=== PATIENT | female | born 1985 | race Caucasian/White ===

== ENCOUNTER 2018-10-02 07:09 | Inpatient (IN) ==
[2018-10-02 07:48] LABS: Amphetamine Screen,Urine Negative ng/mL (Cutoff=1000); Barbiturate Screen,Urine Negative ng/mL (Cutoff=200)
[2018-10-02 07:49] LABS: Benzodiazepines Screen,Urine Negative ng/mL (Cutoff=300); Cannabinoid Screen,Urine Negative ng/mL (Cutoff = 50); Cocaine Screen,Urine Negative ng/mL (Cutoff= 300); Opiate Screen,Urine Negative ng/mL (Cutoff=300); Phencyclidine Screen,Urine Negative ng/mL (Cutoff=25)
[2018-10-02] MEDS ORDERED: miSOPROStol 25 MCG TABLET PO PRN ×3 (08:57→10:02)
[2018-10-02] MEDS ORDERED: Famotidine 20 MG/2 ML VIAL IVP PRN (08:57)
[2018-10-02] MEDS ORDERED: Metoclopramide 10 MG/2 ML VIAL IVP PRN (08:57)
[2018-10-02] MEDS ORDERED: *HR* Nalbuphine 10 MG/ML AMPUL IVP PRN (08:57)
[2018-10-02] MEDS ORDERED: Naloxone 0.4 MG/ML INJ IVP PRN (08:57)
[2018-10-02] MEDS ORDERED: Ringers Solution, Lactated 1,000 ML IVC SCH (09:00)
--- NOTE | 2018-10-02 09:27 | OB Labor Progress Note ---
Date of Encounter: 10/02/18 Time of Encounter: 09:23 Labor Progress Note - Subjective Subjective: Patient reports contractions that are infrequent and pain is manageable - Cervix Cervix: 2/50/-3 - Heart Tones Heart Tones: Baseline 160 Moderate variability Accelerations present No decelerations FHR Category I - [place]: Infrequent and sometimes painful - Interventions Interventions: Double moss balloon placed with 60mL per balloon - Plan Physician notified: No Plan: Continue augmentation management Recheck cervix in 4 hours Anticipate
[2018-10-02 09:58] LABS: Basophils # 0.1 K/mcL (0.0-0.2); Basophils % 0.5 %; Eosinophils # 0.1 K/mcL (0.0-0.6); Eosinophils % 1.1 %; Hematocrit 35.5 % (35.3-44.9); Hemoglobin 11.8 g/dL (11.5-15.4); Immature Granulocytes % 1.7 % (0-4); Lymphocytes % 20.1 %; Mean Corpuscular HGB Conc 33.2 g/dL (31.6-35.5); Mean Corpuscular Hemoglobin 29.5 pg (28.0-33.3); Mean Corpuscular Volume 88.8 fL (83.0-100.0); Mean Platelet Volume 10.4 fL (9.4-12.4); Monocytes # 0.8 K/mcL (0.0-1.3); Monocytes % 7.8 %; Neutrophils # 6.9 K/mcL (1.6-8.9); Platelet Count 207 K/mcL (140-400); Red Cell Distribution Width 12.7 % (11.5-14.5); Segmented Neutrophils % 68.8 %
[2018-10-02] MEDS: Ondansetron 4 MG/2 ML VIAL IVP PRN ×2 (10:04→16:20)
--- NOTE | 2018-10-02 13:29 | OB/GYN History & Physical ---
Date of Encounter: 10/02/18 Time of Encounter: 09:15 Assessment and Plan (1) 38 weeks gestation of Current visit: Yes Status: Acute (2) Intrauterine Current visit: Yes Status: Acute Admit to L&D for augmentation of labor Double moss balloon catheter 50mcg misoprostol PO x 1 Recheck cervix in 4 hours Pain management plan is epidural - may have upon request Anticipate Dr. Che is OB fashion show director and is available as needed (3) SROM (spontaneous rupture of membranes) Current visit: Yes Status: Acute Fern and nitrazine positive (4) Type A blood, Rh positive Current visit: Yes Status: Acute History of Present Illness Chief complaint: SROM HPI: Ms. Serna is a 33 year old female she had [id number] at 38 weeks 3 days gestation with an estimated date of of 10/13/18 dated by LMP. She presents today with complaints of a gush of fluid around 0330 this morning. She reports her membranes were stripped at her office visit on Sunday and she has been bran ever since then. She endorses good movement and denies vaginal bleeding. Her has been uncomplicated. She has been followed by Drs. Esquivel and Kristi throughout her . records are available electronically and have been reviewed. Labs: A+ GBS- HIV- HepB- RPR NR GC/CL - Rubella immune Varicella immune Past Med Surg Social Fam HX - Past Medical History Medical history: no medical history Additional medical history: "leaky heart valve" Psychiatric history: no psych history - Past Surgical History Surgical History: no surgical history - Social History Smoking Status: Former smoker Smokeless Tobacco Status: No Alcohol use: none Drug use: none - Family History Mother Hx Family Cardiac Disorders: Yes (hypertension) Obstetrical History - Pregnancies : 2 Para: 1 Term: 1 : 0 Ab's: 0 Livin Medications and Allergies Acetaminophen [Tylenol] 325 mg PO 08/21/18 [History] Prenatl Vit6/Iron/FA/B12/Ca/D3 [Mteryti Combo Pack] 1 each PO 08/21/18 [History] RX: Acetaminophen [Tylenol] 500 mg PO Q6HR PRN #20 tablet 08/21/18 [Rx] Allergy/AdvReac Type Severity Reaction Status Date / Time Sulfa (Sulfonamide Allergy Mild Hives Verified 10/02/18 09:47 Antibiotics) Review of System OB All systems PM: reviewed and no additional remarkable complaints except as stated Exam - Constitutional Constitutional: well developed, well nourished, no acute distress, average body habitus - HEENT HEENT: PERRL, Normocephaly, Mucus Membranes Moist - Neck Neck exam: full ROM - Lungs Respiratory exam: CTAB - Cardiovascular Cardiovascular exam: RRR, +S1, +S2 - Breasts Breast: bilateral: normal - Abdomen Abdomen: Present: bowel sounds normal, gravid - Extremities Extremities exam: normal capillary refill, normal inspection, radial pulses palpable and symmetrical - Vulva Vulva: bilateral: normal - Vagina Vagina: Present: normal moisture - Cervix Dilation: 2 Effacement: 50 Station: -3 - Uterus Uterus exam: Present: normal size, normal contour - Adnexa Adnexa: bilateral: normal - Anus/Rectum Anus/Rectum: Present: normal perianal skin Results Result Diagrams: 10/02/18 09:30 All other labs normal. - VTE Reasons for not Prescribing Prophylaxis: Treatment not Indicated - Low risk for VTE
--- NOTE | 2018-10-02 13:55 | Anesthesia Evaluation PreOp ---
Date of Encounter: 10/02/18 Time of Encounter: 13:53 - Past History Planned Operation: eduardo Cardiac History: Denies any Significant Hx Pulmonary History: Denies Any Significant HX PHOTO OFFSET PRINTER History: Denies Any Significant HX Other Medical History: GERD Anesthesia History: No Prior Anesthetic Complications, Past Anesthesia (eduardo, c- scope) : Yes Test: Positive Alcohol Use: none Drug use: none Medications and Allergies Acetaminophen [Tylenol] 325 mg PO 08/21/18 [History] Acetaminophen [Tylenol] 500 mg PO Q6HR PRN #20 tablet 08/21/18 [Rx] Prenatl Vit6/Iron/FA/B12/Ca/D3 [Mteryti Combo Pack] 1 each PO 08/21/18 [History] Allergy/AdvReac Type Severity Reaction Status Date / Time Sulfa (Sulfonamide Allergy Mild Hives Verified 10/02/18 09:47 Antibiotics) - Meds/Allergy Pre-op Review Medications Reviewed: Yes Allergies Reviewed: Yes Beta Blockers on Current Med List: No Anesthesia Results - Labs 10/02/18 09:30 Anesthesia Exam [id number] 16 fht 136 Height: 5'10' Weight: 116 NPO (# of Hours): 3 Pain Scale: 2 Pain Scale Used: Numeric (1 - 10) - HEENT Pupil (Motor): Pupils equal Mallampati: II Teeth: Normal Oral Opening: Greater than 3 - PHOTO OFFSET PRINTER LOC: Oriented PHOTO OFFSET PRINTER Motor: Normal RUE, Normal LUE, Normal RLE, Normal LLE, Normal Face PHOTO OFFSET PRINTER Sensory: Normal: RUE, LUE, RLE, LLE, Face - Cardiac Rhythm: Regular Murmur: None - Pulmonary Breath Sounds: bilateral Clear Respiratory Effort: Symmetrical Anesthesia Assess/Plan ASA Score: 2 Anesthetic Plan: Epidural (RISKS DISCUSSED, QUESTIONS ANSWERED, CONSENTED) Monitoring Plan: Standard Monitors Recovery Plan: Other
[2018-10-02] MEDS ORDERED: *HR* FentaNYL (PF) 100 MCG/2 ML VIAL EP ONE (13:56)
[2018-10-02] MEDS ORDERED: *HR* Ropivacaine/PF 0.2% 20 ML VIAL EP ONE (13:56)
[2018-10-02] MEDS ORDERED: *HR* FentaNYL (PF) 100 MCG/2 ML VIAL ONE (13:58)
[2018-10-02] MEDS ORDERED: *HR* Ropivacaine/PF 0.2% 20 ML VIAL ONE (13:59)
[2018-10-02] MEDS ORDERED: Lidocaine -MPF 2% 5 ML VIAL ONE (13:59)
[2018-10-02] MEDS ORDERED: Epidural Premix (fent/bupiv) 110 ML EP SCH (14:00)
--- NOTE | 2018-10-02 14:13 | OB Labor Progress Note ---
Date of Encounter: 10/02/18 Time of Encounter: 14:11 Labor Progress Note - Subjective Subjective: Patient tolerating contractions and states they are not as painful. - Cervix Cervix: 5/70/-2 - Heart Tones Heart Tones: Baseline 160 Moderate variability Accelerations present 15x15 No decelerations FHR Category I - [place]: Contractions every 2-4 minutes and palpate mild to moderate - Interventions Interventions: SVE Cook catheter removed - Plan Physician notified: Yes Plan: Start pitocin per protocol and increase to adequate contractions May have epidural upon request Anticipate Dr. Che updated
[2018-10-02] MEDS ORDERED: Oxytocin 20 units/ LR 1000 mL 20 UNIT/1,000 ML BAG IVC SCH ×2 (14:15→22:38)
--- NOTE | 2018-10-02 14:58 | Anesthesia Procedures ---
Addendum entered and electronically signed by Nico Ruiz CRNA 10/02/18 21:55: Infant Delivery Date: 10/02/18 Delivery Time: 20:52 Original Note: Date of Encounter: 10/02/18 Time of Encounter: 14:56 Procedures: Anesthesia - Epidural/Spinal Patient ID/Chart reviewed: Yes Patient examined: Yes OB Eval: Gestational age: 38 OB Eval: : 2 OB Eval: Hx Para: 1 OB Eval: Dilated at (cm): 5 OB Eval: Contractions: Non-stressed pattern Consent Obtained: Yes Supplemental Oxygen: None/Room Air Site Prep: Aseptic Technique, Sterile prep and drape, 0.5% Chlorhexidine/Alcohol Patient position: upright Local Anesthetic: Lidocaine 1% Amount of Local Anesthetic used: 3 Touhy Needle Gauge: 18 Touhy Needle Depth (cm): 8 Catheter Depth at Skin (cm): 15 Test Dose (1.5% Lido + Epi): Volume given (mls): 3 Test Dose Result: Positive Loading Dose: Fentanyl (mcg): 100 Loading Dose: Other: rop 0.2% 10cc Loading Dose Administered: Thru Touhy Needle Infusion Med: 0.125% Bupivacaine w/ 2 mcg/ml Fentanyl Infusion Rate (mls/hr): 15 (pcea 5cc q30") Catheter Secured in Place: Tegaderm Interspace Used: L2-L3 Loss of Resistance (TERRELL): Yes Blood: No CSF: No Paresthesia: No Procedure: aseptic, zenon well, VSS,effective Vitals + FHT's: 131/91 104 16 fht 155
--- NOTE | 2018-10-02 18:21 | OB Labor Progress Note ---
Date of Encounter: 10/02/18 Time of Encounter: 18:19 Labor Progress Note - Subjective Subjective: Patient comfortable with epidural - Cervix Cervix: 6/70/-2 - Heart Tones Heart Tones: Continued category I tracing - [place]: IUPC with adequate contractions - Interventions Interventions: SVE IUPC placed - Plan Physician notified: No Plan: Continue augmentation management Frequent position changes Anticipate
--- NOTE | 2018-10-02 21:15 | OB/GYN Procedure Note ---
Delivery - Delivery Date: 10/02/18 Provider: Terra Berry Intrapartum events: none Delivery induction: moss, misoprostol Delivery augmentation: pitocin Delivery monitor: external FHT, external uterine, internal uterine Anesthesia: epidural Quantitated Blood Loss: 250 - (s) A Delivery Date: 10/02/18 Delivery Time: 20:52 Presentation: vertex Position: OA Route of delivery: Gender: Male Viability: Viable at 1 minute: 8 at 5 mins: 9 Shoulder Dystocia: not encountered Specimens collected: cord blood Placenta: complete extraction Cord: nuchal cord, nuchal reduced - Repair Laceration Description: Perineal - 1st Degree - Complications Delivery complications: none Delivery comments: C/C/+1, patient uncomfortable. With adequate maternal effort, delivered with 3 contraction(S). Delivered DOA position, rest to ALVARO. Loose nuchal x1, reduced and delivered . Vigorous male, crying. 60sec cord delay. Cord clamped and cut. No gases. Segment created. Cord blood obtained. First degree laceration repaired using 4-0 vicryl in the usual fashion. Small bilateral periurethral tears appreciated. Hemostasis, counts correct. EBL: 250mL APGARS: 8/9 Terra Berry MD - Disposition Mom disposition: stable in LDR [place] disposition: stable in LDR
[2018-10-02] MEDS ORDERED: Measles/Mumps/Rubella Vacc 0.5 ML VIAL SQ PRN (22:38)
[2018-10-02] MEDS: Ibuprofen 600 MG TABLET PO PRN (23:36)
[2018-10-03] MEDS: Ibuprofen 600 MG TABLET PO PRN ×3 (06:29→20:40)
[2018-10-03 07:07] LABS: Basophils % 0.3 %; Eosinophils # 0.1 K/mcL (0.0-0.6); Eosinophils % 1.1 %; Hematocrit 31.7 % (35.3-44.9); Hemoglobin 10.4 g/dL (11.5-15.4); Immature Granulocytes % 1.1 % (0-4); Lymphocytes # 1.7 K/mcL (0.6-4.6); Lymphocytes % 16.9 %; Mean Corpuscular HGB Conc 32.8 g/dL (31.6-35.5); Mean Corpuscular Hemoglobin 29.3 pg (28.0-33.3); Mean Corpuscular Volume 89.3 fL (83.0-100.0); Mean Platelet Volume 10.5 fL (9.4-12.4); Monocytes # 0.8 K/mcL (0.0-1.3); Monocytes % 7.7 %; Neutrophils # 7.2 K/mcL (1.6-8.9); Platelet Count 173 K/mcL (140-400); Red Blood Count 3.55 M/mcL (3.82-4.97); Red Cell Distribution Width 12.6 % (11.5-14.5); Segmented Neutrophils % 72.9 %
[2018-10-03] MEDS: Prenatal Vit/FA 1 EACH TABLET PO SCH (08:35)
[2018-10-03] MEDS: Acetaminophen 325 MG TABLET PO PRN ×2 (11:15→18:01)
[2018-10-03] MEDS ORDERED: Famotidine 20 MG TABLET PO ONE (21:00)
[2018-10-04] MEDS: Ibuprofen 600 MG TABLET PO PRN (10:02)
[2018-10-04] MEDS: Prenatal Vit/FA 1 EACH TABLET PO SCH (10:03)
--- NOTE | 2018-10-04 10:07 | OB/GYN Progress Note ---
Date of Encounter: 10/03/18 Time of Encounter: 12:30 - Assessment and Plan (1) 38 weeks gestation of Current Visit: Yes Status: Acute 33yo female PPD#1 from , 1. management - tolerating regular diet and passing flatus - ambulating independently, voiding spontaneously - minimal vaginal bleeding appreciated, minimal pain (IBUprofen/tylenol prn) - denies si/sx of infection including fever/chills, normal VS - breast feeding, consultation ordered - will discuss contraception at 4wk PPV Dispo: OK to DC patient on PPD#2, circumcision for baby boy Satish scheduled for tomorrow on PPD#2. OK for patient to be DC to home on 10/04/2018. MD JHONY Subjective - Subjective Principal diagnosis: PPD#1 Interval history: Patient doing well s/p , PPD#1, baby boy SATISH. Tolerating regular diet, ambulating, passing flatus, feeling as though she could potentially have a bowel movement. Ambulating well, baby also doing well. Circumcision tomorrow PPD#2. No pain medicatoin. Breast feeding. Patient reports: appetite normal, voiding normally, pain well controlled, ambulating normally : doing well Objective - Latest Vital Signs Latest vital signs: Vital Signs Temp Pulse Pulse Resp BP Pulse Ox 10/03/18 19:45 98.6 F 83 16 131/89 99 10/03/18 15:45 97.8 F 92 16 110/77 98 10/03/18 15:41 92 16 Intake and Output 10/03/18 10/04/18 10/04/18 23:59 07:59 15:59 Intake Total 600 / 600 Output Total 1999 900 / 900 Balance -2000 / -2000 -300 / -300 Intake: Oral 600 / 600 Output: Urine 1999 900 / 900 Other: Weight 112.854 kg Patient Weight 10/04/18 23:59 Weight 112.854 kg - Exam Extremities: Present: normal Abdomen: Present: normal appearance Uterus: Present: normal, firm Uterus Position: 2 Fingers Below Umbilicus
[2018-10-04 11:32] VITALS: BP 92/54
--- NOTE | 2018-10-04 13:00 | Discharge Summary ---
Date of Encounter: 10/04/18 Time of Encounter: 12:58 - Discharge Diagnosis (1) Vaginal delivery Priority: Primary Status: Acute Comments: Pt meeting all milestones. She desires discharge home today. (2) Breast feeding status of mother Priority: Secondary Status: Acute Comments: Pt has a pump at home. well established. - Discharge Medications Prescriptions: New Acetaminophen [Tylenol] 650 mg PO Q6HR PRN tablet PRN Reason: Mild Pain Ibuprofen [Motrin] 600 mg PO Q6HR PRN #30 tablet PRN Reason: Cramping Calcium Carbonate [Tums] 1,000 mg PO Q4H PRN tab.chew PRN Reason: Heartburn Docusate [Colace] 100 mg PO BID #30 capsule Continue Prenatl Vit6/Iron/FA/B12/Ca/D3 [Mteryti Combo Pack] 1 each PO Discontinued Acetaminophen [Tylenol] 325 mg PO Acetaminophen [Tylenol] 500 mg PO Q6HR PRN #20 tablet PRN Reason: Pain Home Medications: Prenatl Vit6/Iron/FA/B12/Ca/D3 [Mteryti Combo Pack] 1 each PO 08/21/18 [History] Acetaminophen [Tylenol] 650 mg PO Q6HR PRN tablet 10/04/18 [Rx] Calcium Carbonate [Tums] 1,000 mg PO Q4H PRN tab.chew 10/04/18 [Rx] Docusate [Colace] 100 mg PO BID #30 capsule 10/04/18 [Rx] Ibuprofen [Motrin] 600 mg PO Q6HR PRN #30 tablet 10/04/18 [Rx] Allergies/Adverse Reactions: Allergy/AdvReac Type Severity Reaction Status Date / Time Sulfa (Sulfonamide Allergy Mild Hives Verified 10/02/18 09:47 Antibiotics) Data Procedures and tests throughout hospitalization: Laboratory Tests 10/02/18 10/02/18 10/03/18 07:35 09:30 06:39 WBC 10.0 9.8 RBC 4.00 3.55 L Hgb 11.8 10.4 L Hct 35.5 31.7 L MCV 88.8 89.3 MCH 29.5 29.3 MCHC 33.2 32.8 RDW 12.7 12.6 Plt Count 207 173 MPV 10.4 10.5 Immature Gran % 1.7 1.1 Seg Neutrophils % 68.8 72.9 Lymphocytes % 20.1 16.9 Monocytes % 7.8 7.7 Eosinophils % 1.1 1.1 Basophils % 0.5 0.3 Neutrophils # 6.9 7.2 Lymphocytes # 2.0 1.7 Monocytes # 0.8 0.8 Eosinophils # 0.1 0.1 Basophils # 0.1 0.0 Urine Opiates Screen Negative Ur Barbiturates Screen Negative Ur Phencyclidine Scrn Negative Ur Amphetamines Screen Negative U Benzodiazepines Scrn Negative Urine Cocaine Screen Negative U Marijuana (THC) Screen Negative Ur Drug Screen Interp See Below Date of admission: 10/02/18 07:09 Primary care physician: PCP NONE Consults: 10/02/18 22:38 Consult to Cath Lab [CONS] Routine Comment: Vaginal delivery, consult needed Discharging clinician: Isabel Khan Anticipated date of discharge: 10/04/18 - Patient Status Disposition: Home, Self-Care Condition: Good Functional capacity at discharge: independent ambulation Overall status at discharge: patient is progressing back to baseline - Discharge Instructions Follow Up With: NONE,PCP [Primary Care Provider] - Ki Galeana MD [Partnered Physician] - - Diet and Activity Activity: increase activity as tolerated Diet: regular diet Hospital Course Reason for admission: induction of labor Delivery: Episiotomy: none Laceration: 1st degree Other procedures: none complications: none Discharge diagnosis: IUP at term delivered baby: male Hospital course: - Delivery Date: 10/02/18 Provider: Terra Berry Intrapartum events: none Delivery induction: moss, misoprostol Delivery augmentation: pitocin Delivery monitor: external FHT, external uterine, internal uterine Anesthesia: epidural Quantitated Blood Loss: 250 - Infant (s) A Infant Delivery Date: 10/02/18 Delivery Time: 20:52 Presentation: vertex Position: OA Route of delivery: Gender: Male Viability: Viable at 1 minute: 8 at 5 mins: 9 Shoulder Dystocia: not encountered Specimens collected: cord blood Placenta: complete extraction Cord: nuchal cord, nuchal reduced - Repair Laceration Description: Perineal - 1st Degree - Complications Delivery complications: none - Disposition Mom disposition: home PPD2 disposition: home with mother, Time Attestation: Total time spent providing and/or coordinating discharge services: Time Spent: Less than 30 minutes Exam - Constitutional Vitals: Temp Pulse Resp BP Pulse Ox 97.6 F 85 80 92/54 100 10/04/18 10:11 10/04/18 10:11 10/04/18 11:32 10/04/18 11:32 10/04/18 10:11 General appearance IM: A&O X 3 - Respiratory Respiratory exam: Present: CTAB - Cardiovascular Cardiovascular exam IM: Present: RRR - GI/Abdominal GI/Abdominal exam IM: soft - Uterine Tone: Firm Uterus Position: 1 Finger Below Umbilicus - Extremities Exam Extremities exam IM: Present: pedal edema (1+ bilaterally) - Neurological Exam Neurological exam: normal gait, oriented X3 - Psychiatric Additional comments: reports good mood
== END 2018-10-04 15:00 | disposition home or self-care (01) | DRG 560 ==
LOC: 1NENULAB → OBSVTOIN 07:09 → 1NENUOBS 23:31
PROVIDERS: ADMIT Advanced Practice Midwife; ATTEND Advanced Practice Midwife

== ENCOUNTER 2018-10-09 00:55 | Inpatient (IN) ==
[2018-10-09 01:35] LABS: Basophils % 0.5 %; Eosinophils # 0.3 K/mcL (0.0-0.6); Eosinophils % 3.4 %; Hematocrit 34.9 % (35.3-44.9); Hemoglobin 11.3 g/dL (11.5-15.4); Immature Granulocytes % 1.3 % (0-4); Lymphocytes # 2.5 K/mcL (0.6-4.6); Lymphocytes % 32.1 %; Mean Corpuscular HGB Conc 32.4 g/dL (31.6-35.5); Mean Corpuscular Hemoglobin 29.3 pg (28.0-33.3); Mean Corpuscular Volume 90.4 fL (83.0-100.0); Mean Platelet Volume 9.3 fL (9.4-12.4); Monocytes # 0.8 K/mcL (0.0-1.3); Monocytes % 10.1 %; Neutrophils # 4.1 K/mcL (1.6-8.9); Platelet Count 259 K/mcL (140-400); Red Blood Count 3.86 M/mcL (3.82-4.97); Red Cell Distribution Width 12.8 % (11.5-14.5); Segmented Neutrophils % 52.6 %
--- NOTE | 2018-10-09 01:42 | Emergency Department Note ---
Disposition Clinical Impression: UTI (urinary tract infection) Qualifiers: Urinary tract infection type: acute cystitis Hematuria presence: with hematuria Qualified Code(s): N30.01 - Acute cystitis with hematuria Headache Qualifiers: Headache type: unspecified Headache chronicity pattern: chronic headache Intractability: not intractable Qualified Code(s): R51 - Headache Hypertension Qualifiers: Hypertension type: unspecified Qualified Code(s): I10 - Essential (primary) hypertension Disposition: Admitted As Inpatient Condition: Good Time of Disposition: 04:37 General Adult HPI - General Chief complaint: ED Dizziness Stated complaint: HTN/1wk /dizzy/cp Time Seen by Provider: 10/09/18 01:13 Source: patient Limitations: no limitations Nursing Notes Reviewed: Yes Vital Signs Reviewed: Yes - History of Present Illness HPI Narrative: Female patient who is 1 week from a normal vaginal delivery presenting to the emergency department complaining of headaches swelling to her lower extremities and hypertension. Did not have a history of hypertension prior to this. No history of hypertension or preeclampsia. Patient does report some heaviness in the left side of her chest. She denies any blurred vision but does report a waxing and waning headache that is more significant today than normal. She denies any fevers. She denies any vaginal discharge out of the ordinary. Pain Scale: 7 - Related Data Home Medications Medication Instructions Recorded Confirmed RX: Prenatl Vit6/Iron/FA/B12/Ca/D3 1 each PO 08/21/18 [Mteryti Combo Pack] Previous Rx's Medication Instructions Recorded RX: Acetaminophen [Tylenol] 650 mg PO Q6HR PRN tablet 10/04/18 RX: Calcium Carbonate [Tums] 1,000 mg PO Q4H PRN tab.chew 10/04/18 RX: Docusate [Colace] 100 mg PO BID #30 capsule 10/04/18 RX: Ibuprofen [Motrin] 600 mg PO Q6HR PRN #30 tablet 10/04/18 Cephalexin [Keflex] 500 mg PO BID 5 Days capsule 10/09/18 Allergies Allergy/AdvReac Type Severity Reaction Status Date / Time Sulfa (Sulfonamide Allergy Mild Hives Verified 10/09/18 01:22 Antibiotics) All systems ED: reviewed and negative except as stated. Review of Systems: As Per HPI Constitutional: Denies: fever Eyes: Denies: vision change Cardiovascular: Reports: chest pain. Denies: palpitations, syncope Respiratory: Reports: dyspnea. Denies: cough, sputum production Gastrointestinal: Denies: abdominal pain, nausea, vomiting, diarrhea, hematemesis, melena, hematochezia Genitourinary: Denies: urgency, dysuria, frequency, hematuria Musculoskeletal: Reports: back pain, neck pain Integumentary: Denies: rash Neurological: Reports: headache Past Medical History - Past Medical History Attestation: Yes The following information was validated with the patient. Source: patient Medical history: Reports: non-contributory Surgical history: Reports: no surgical history Psychiatric history: Reports: no psych history SIZE MAKER history: Reports: no SIZE MAKER history - Social History Smoking Status: Former smoker Smokeless Tobacco Status: No Alcohol use: Reports: none Drug use: Reports: none Physical Exam - General Limitations: no limitations General appearance: alert, in no apparent distress - Head Head exam: atraumatic, normocephalic, normal inspection - Eye Eye exam: Present: normal appearance, PERRL, EOMI - ENT ENT exam: normal exam, normal oropharynx, mucous membranes moist - Neck Neck exam: Present: normal inspection, full ROM, trachea midline - Chest Chest inspection: Present: normal inspection, symmetric chest wall rise - Respiratory Respiratory exam: Present: normal lung sounds bilaterally. Absent: respiratory distress, accessory muscle use - Cardiovascular Cardiovascular exam: Present: regular rate, normal rhythm, normal heart sounds - Abdominal Exam Abdominal exam: Present: soft, Non-Tender. Absent: tenderness, distention, guarding, rebound, rigidity, organomegaly, Cochran's sign, Rovsing's sign, tender ness at McBurney's Point - Extremities Exam Extremities exam: Present: normal inspection, full ROM, normal capillary refill, pedal edema (Pitting to the knees bilaterally). Absent: tenderness, calf tenderness - Back Exam Back exam: Present: normal inspection, full ROM. Absent: tenderness - Neurological Exam Neurological exam: Present: alert, oriented X3, CN II-XII intact - Psychiatric Psychiatric exam: Present: normal affect, normal mood - Skin Skin exam: Present: warm, dry, intact, normal color. Absent: rash, cyanosis, diaphoresis Course Course Narrative: Patient with a history of headache since her presenting with worsening of her headache today worsening of lower extremity edema and high blood pressure. She also reports edema to her lower extremities. She reports a mild shortness of breath as well as a heaviness on her chest. She denies any fevers or coughs. She does report a rhinorrhea that is worse when she lays down that exacerbates the feeling in her chest. She denies any increase in vaginal discharge other than normal. She denies any burning on urination. She states she has otherwise been doing okay. Lung exam patient does have pitting edema to her lower extremities. Sounds are clear heart tones are normal. Abdomen is soft nontender. She is hypertensive while here. She states her normal pressures are in the 90s systolic.. She denies any palpitations. She has never been hypertensive before. She is . Basic lab workup on patient and provide patient with Tylenol for her headache. - Reevaluation(s) Reevaluation #1: Patient's hypertension has resolved. She does still have a headache. After discussion with my attending she states that she has had her headache ever since she delivered. She did have an epidural. However her pain is not worse with movement. Not worse with walking. She is also reporting that she has had some nasal congestion and she feels like that is heavy on her chest when she lays flat so she has been sitting up. She denies any shortness of breath currently. She is resting comfortably currently. She appears well and in no acute distress. We have been consult them with our OB department here. We did get a troponin as well as the chest x-ray secondary to patient's chest pain. Also an EKG which showed no signs of acute ischemia. The patient appears well and is resting comfortably. Her hypertension did resolve while here. OB here has parameters for hypertension is 160/110. Reevaluation #2: Patient's liver enzymes mildly elevated. She continues with the headache. She is neurologically intact. No protein in her urine. We will admit patient to OB at this time for preeclampsia. We have started her on magnesium. I discussed this with the patient. - Consultations Consultation #1: I talk was sterilely the radio equipment installer. She is agreeable with the workup so far. She will be following with the patient. Time: 01:42 Consultation #2: I attest face with Ainsley the nurse practitioner. She will be talking to . Time: 03:03 Consultation #3: Ainsley called back with Dr Stevenson's recommendation of discharge home with instructions to call their office if symptoms continue. Time: :19 Additional Consultation(s): After reviewing the patient's vital signs on the monitor in the room she was not ed to be hypertensive on several different occasions. This did not appear to initially be documented and one was accidentally documented is lower than what the diastolic number actually was. Patient reports she still having headache. Patient does have a mild elevation in her liver enzymes. I discussed this case with Dr. Stevenson and he is recommending we go on and start patient on mag and admit to his service. Vital Signs Temperature 97.8 F 10/09/18 00:59 Pulse Rate 76 10/09/18 00:59 Respiratory Rate 16 10/09/18 00:59 Blood Pressure 145/101 10/09/18 00:59 O2 Sat by Pulse Oximetry 100 10/09/18 00:59 Temperature 97.8 F 10/09/18 00:59 Pulse Rate 68 10/09/18 04:42 Respiratory Rate 18 10/09/18 04:42 Blood Pressure 159/99 10/09/18 04:42 O2 Sat by Pulse Oximetry 100 10/09/18 04:42 Oxygen Delivery Oxygen Delivery Room Air Medical Decision Making - Medical Records Medical records reviewed: Yes I reviewed the patient's medical records. - Lab Data Lab results reviewed: Yes I reviewed the patient's lab results. Result diagrams: 10/09/18 01:25 10/09/18 01:25 Lab Results 10/09/18 10/09/18 10/09/18 Range/Units 01:25 01:25 01:25 WBC 7.7 (4.3-11.1) K/mcL RBC 3.86 (3.82-4.97) M/mcL Hgb 11.3 L (11.5-15.4) g/dL Hct 34.9 L (35.3-44.9) % MCV 90.4 (83.0-100.0) fL MCH 29.3 (28.0-33.3) pg MCHC 32.4 (31.6-35.5) g/dL RDW 12.8 (11.5-14.5) % Plt Count 259 (140-400) K/mcL MPV 9.3 L (9.4-12.4) fL Immature Gran % 1.3 (0-4) % Seg Neutrophils % 52.6 % Lymphocytes % 32.1 % Monocytes % 10.1 % Eosinophils % 3.4 % Basophils % 0.5 % Neutrophils # 4.1 (1.6-8.9) K/mcL Lymphocytes # 2.5 (0.6-4.6) K/mcL Monocytes # 0.8 (0.0-1.3) K/mcL Eosinophils # 0.3 (0.0-0.6) K/mcL Basophils # 0.0 (0.0-0.2) K/mcL Sodium 141 (136-145) mEq/L Potassium 3.9 (3.5-5.1) mEq/L Chloride 107 (98-107) mEq/L Carbon Dioxide 23 (23-29) mEq/L BUN 13 (6-20) mg/dL Creatinine 0.58 L (0.60-1.20) mg/dL Est GFR ( Amer) > 60 (> 60) Est GFR (Non-Af Amer) > 60 (> 60) BUN/Creatinine Ratio 22 (6-26) Glucose 91 (70-105) mg/dL Calculated Osmolality 292 (280-300) Lactic Acid 0.4 L (0.5-2.2) mmol/L Uric Acid 5.0 (2.3-7.6) mg/dL Calcium 8.3 L (8.6-10.3) mg/dL Total Bilirubin 0.3 (0.3-1.0) mg/dL AST 32 (13-39) Units/L ALT 60 H (7-52) Units/L Alkaline Phosphatase 110 H (34-104) Units/L Troponin I < 0.03 (< 0.04) ng/mL Serum Total Protein 6.0 L (6.4-8.9) g/dL Albumin 3.2 L (3.5-5.7) g/dL Globulin 2.8 (2.4-3.5) g/dL Albumin/Globulin Ratio 1.1 (1.1-2.2) Urine Color (Yellow) Urine Clarity (Clear) Urine pH (5.0-8.0) pH Units Ur Specific [place] (1.010-1.025) Urine Protein (Neg-Trace) mg/dL Urine Glucose (UA) (Normal) mg/dL Urine Ketones (Negative) mg/dL Urine Blood (Negative) Urine Nitrite (Negative) Urine Bilirubin (Negative) Urine Urobilinogen (Normal) mg/dL Ur Leukocyte Esterase (Negative) Urine Microscopic RBC (0-3) per hpf Urine Microscopic WBC (0-3) per hpf Ur Squamous Epith Cells (None-Few) per lpf Urine Bacteria (None-Few) per hpf Hyaline Casts (None-Few) per lpf Ur Culture Indicated? (NO) 10/09/18 Range/Units 02:28 WBC (4.3-11.1) K/mcL RBC (3.82-4.97) M/mcL Hgb (11.5-15.4) g/dL Hct (35.3-44.9) % MCV (83.0-100.0) fL MCH (28.0-33.3) pg MCHC (31.6-35.5) g/dL RDW (11.5-14.5) % Plt Count (140-400) K/mcL MPV (9.4-12.4) fL Immature Gran % (0-4) % Seg Neutrophils % % Lymphocytes % % Monocytes % % Eosinophils % % Basophils % % Neutrophils # (1.6-8.9) K/mcL Lymphocytes # (0.6-4.6) K/mcL Monocytes # (0.0-1.3) K/mcL Eosinophils # (0.0-0.6) K/mcL Basophils # (0.0-0.2) K/mcL Sodium (136-145) mEq/L Potassium (3.5-5.1) mEq/L Chloride (98-107) mEq/L Carbon Dioxide (23-29) mEq/L BUN (6-20) mg/dL Creatinine (0.60-1.20) mg/dL Est GFR ( Amer) (> 60) Est GFR (Non-Af Amer) (> 60) BUN/Creatinine Ratio (6-26) Glucose (70-105) mg/dL Calculated Osmolality (280-300) Lactic Acid (0.5-2.2) mmol/L Uric Acid (2.3-7.6) mg/dL Calcium (8.6-10.3) mg/dL Total Bilirubin (0.3-1.0) mg/dL AST (13-39) Units/L ALT (7-52) Units/L Alkaline Phosphatase (34-104) Units/L Troponin I (< 0.04) ng/mL Serum Total Protein (6.4-8.9) g/dL Albumin (3.5-5.7) g/dL Globulin (2.4-3.5) g/dL Albumin/Globulin Ratio (1.1-2.2) Urine Color Yellow (Yellow) Urine Clarity Clear (Clear) Urine pH 6.5 (5.0-8.0) pH Units Ur Specific [place] 1.015 (1.010-1.025) Urine Protein Negative (Neg-Trace) mg/dL Urine Glucose (UA) Normal (Normal) mg/dL Urine Ketones Negative (Negative) mg/dL Urine Blood Large H (Negative) Urine Nitrite Negative (Negative) Urine Bilirubin Negative (Negative) Urine Urobilinogen Normal (Normal) mg/dL Ur Leukocyte Esterase Moderate H (Negative) Urine Microscopic RBC 3-5 H (0-3) per hpf Urine Microscopic WBC 15-30 H (0-3) per hpf Ur Squamous Epith Cells Many H (None-Few) per lpf Urine Bacteria Moderate H (None-Few) per hpf Hyaline Casts None Seen (None-Few) per lpf Ur Culture Indicated? NO. A (NO) - Radiology Data Radiology results reviewed: Yes I reviewed the patient's radiology results. Chest X-Ray 10/09/18 03:24 IMPRESSION: No acute findings. D/ / Nereyda Garber MD / Nereyda Garber MD Interpreting Provider: Nereyda Garber MD - EKG Data EKG #1 EKG attestation: Yes I reviewed and interpreted this EKG. EKG results narrative: Normal sinus rhythm at a rate of 62. [place] interval is 164. QRS duration is 98. QT is 387. QTC is 393. No signs of acute ischemia. Poor R-wave progression. No signs of Brugada or WPW. Attestation Statement - Attestation Attestation: Resident Attestation: I examined this patient and my medical decision making was reviewed with the Resident Physician. I agree with the documented findings, disposition and treatment plan as described except to the extent set forth below. We independently had [id number] contact with the patient. Patient presenting to the emergency department for swelling and hypertension. Patient underwent evaluation for eclampsia. Patient has been having headache. Patient initially thought headache related to epidural, sinusitis or just muscle headache. The patient overall and I had previous complications with . During her stay she was found to be significantly hypertensive. She does have +1 pitting edema of the lower extremities. She will undergo further evaluation with OB. Patient admitted under the OB service.
[2018-10-09 01:54] LABS: Alanine Aminotransferase 60 Units/L (7-52); Albumin 3.2 g/dL (3.5-5.7); Albumin/Globulin Ratio 1.1 (1.1-2.2); Alkaline Phosphatase 110 Units/L (34-104); Aspartate Amino Transferase 32 Units/L (13-39); BUN/Creatinine Ratio 22 (6-26); Bilirubin,Total 0.3 mg/dL (0.3-1.0); Blood Urea Nitrogen 13 mg/dL (6-20); Calcium 8.3 mg/dL (8.6-10.3); Carbon Dioxide 23 mEq/L (23-29); Chloride 107 mEq/L (98-107); Globulin 2.8 g/dL (2.4-3.5); Glucose 91 mg/dL (70-105); Osmolality,Calculated 292 (280-300); Potassium 3.9 mEq/L (3.5-5.1); Sodium 141 mEq/L (136-145); eGFR For Non-African Americans > 60 (> 60)
[2018-10-09 02:36] LABS: Bilirubin,Urine Negative (Negative); Blood,Urine Large (Negative); Clarity,Urine Clear (Clear); Color,Urine Yellow (Yellow); Glucose,Urine (UA) Normal (Normal); Ketones,Urine Negative (Negative); Leukocyte Esterase,Urine Moderate (Negative); Nitrite,Urine Negative (Negative); PH,Urine 6.5 pH Units (5.0-8.0); Protein,Urine Negative (Neg-Trace); Specific Gravity,Urine 1.015 (1.010-1.025); Urobilinogen,Urine Normal (Normal)
[2018-10-09 02:39] LABS: Bacteria,Urine Moderate per hpf (None-Few); Hyaline Casts,Urine None Seen per lpf (None-Few); Squamous Epithelial Cell,Urine Many per lpf (None-Few); WBC,Urine 15-30 per hpf (0-3)
[2018-10-09 03:25] LABS: Troponin I < 0.03 ng/mL (< 0.04)
[2018-10-09] MEDS ORDERED: cephALEXin 250 MG CAPSULE PO STA (03:32)
[2018-10-09] MEDS ORDERED: Calcium Gluconate 1,000 MG/10 ML VIAL IVPB ONE (06:17)
[2018-10-09] MEDS ORDERED: Ringers Solution, Lactated 1,000 ML ONE (06:31)
[2018-10-09] MEDS: Magnesium Sulfate 20 gm/500mL 20 GM/500 ML IV.SOLN IVC SCH ×2 (06:46→16:13)
--- NOTE | 2018-10-09 07:30 | OB/GYN History & Physical ---
Date of Encounter: 10/09/18 Time of Encounter: 07:30 Assessment and Plan (1) Status post vaginal delivery Current visit: Yes Status: Acute 33 y/o , s/p PPD#6, r/o preeclampsia, UTI, Plan: I started Mg for seizure ppx, Tox labs sent, Aekrs placed to measure urine output, Her pressures are in the mild range so we'll hold off on meds until she c onsistently is above systolics of 155's (Nursing to call Provider), Seizure protocol in place, ok for diet History of Present Illness HPI: Ms. Serna is a 33 year old who presents to PP with headaches and edema. She is s/p PPD#6. She started having headaches for the past few days unrelieved with headaches and took her BP. She says that it was 160's/110's so she presented to the ED. In the ED, she reported some chest tightness and an EKG and chest x-ray was done which returned neg. She does not report blurry vision, RUQ/epigastric pain, nausea or vomiting. Her bleeding is scant. Past Med Surg Social Fam HX - Past Medical History Medical history: non-contributory Additional medical history: "leaky heart valve" Psychiatric history: no psych history - Past Surgical History Surgical History: no surgical history - Social History Smoking Status: Former smoker Smokeless Tobacco Status: No Alcohol use: none Drug use: none - Family History Mother Hx Family Cardiac Disorders: Yes (hypertension) Obstetrical History - Pregnancies : 2 Para: 1 Medications and Allergies RX: Prenatl Vit6/Iron/FA/B12/Ca/D3 [Mteryti Combo Pack] 1 each PO 08/21/18 [History] RX: Acetaminophen [Tylenol] 650 mg PO Q6HR PRN tablet 10/04/18 [Rx] RX: Calcium Carbonate [Tums] 1,000 mg PO Q4H PRN tab.chew 10/04/18 [Rx] RX: Docusate [Colace] 100 mg PO BID #30 capsule 10/04/18 [Rx] RX: Ibuprofen [Motrin] 600 mg PO Q6HR PRN #30 tablet 10/04/18 [Rx] Cephalexin [Keflex] 500 mg PO BID 5 Days capsule 10/09/18 [Rx] Allergy/AdvReac Type Severity Reaction Status Date / Time Sulfa (Sulfonamide Allergy Mild Hives Verified 10/09/18 01:22 Antibiotics) Review of System OB All systems PM: reviewed and no additional remarkable complaints except as stated Exam - Vital Signs Vital signs: Initial Vital Signs Temp Pulse Resp BP Pulse Ox 97.8 F 76 16 145/101 100 10/09/18 00:59 10/09/18 00:59 10/09/18 00:59 10/09/18 00:59 10/09/18 00:59 - Constitutional Constitutional: no acute distress - HEENT HEENT: PERRL - Neck Neck exam: full ROM - Lungs Respiratory exam: CTAB - Cardiovascular Cardiovascular exam: RRR - Abdomen Abdomen: Present: non tender - Extremities Extremities exam: pedal edema (mild) Results Result Diagrams: 10/09/18 01:25 10/09/18 01:25 Abnormal lab results Hgb 11.3 g/dL (11.5-15.4) L 10/09/18 01:25 Hct 34.9 % (35.3-44.9) L 10/09/18 01:25 MPV 9.3 fL (9.4-12.4) L 10/09/18 01:25 Creatinine 0.58 mg/dL (0.60-1.20) L 10/09/18 01:25 Lactic Acid 0.4 mmol/L (0.5-2.2) L 10/09/18 01:25 Calcium 8.3 mg/dL (8.6-10.3) L 10/09/18 01:25 ALT 60 Units/L (7-52) H 10/09/18 01:25 Alkaline Phosphatase 110 Units/L (34-104) H 10/09/18 01:25 Serum Total Protein 6.0 g/dL (6.4-8.9) L 10/09/18 01:25 Albumin 3.2 g/dL (3.5-5.7) L 10/09/18 01:25 Urine Blood Large (Negative) H 10/09/18 02:28 Ur Leukocyte Esterase Moderate (Negative) H 10/09/18 02:28 Urine Microscopic RBC 3-5 per hpf (0-3) H 10/09/18 02:28 Urine Microscopic WBC 15-30 per hpf (0-3) H 10/09/18 02:28 Ur Squamous Epith Cells Many per lpf (None-Few) H 10/09/18 02:28 Urine Bacteria Moderate per hpf (None-Few) H 10/09/18 02:28 Ur Culture Indicated? NO. (NO) A 10/09/18 02:28 All other labs normal.
[2018-10-09] MEDS ORDERED: Ringers Solution, Lactated 1,000 ML IVC SCH (07:45)
[2018-10-09 08:54] LABS: Basophils # 0.1 K/mcL (0.0-0.2); Basophils % 0.9 %; Eosinophils # 0.3 K/mcL (0.0-0.6); Eosinophils % 3.8 %; Hematocrit 36.7 % (35.3-44.9); Hemoglobin 11.7 g/dL (11.5-15.4); Immature Granulocytes % 1.5 % (0-4); Lymphocytes % 30.1 %; Mean Corpuscular HGB Conc 31.9 g/dL (31.6-35.5); Mean Corpuscular Volume 90.8 fL (83.0-100.0); Mean Platelet Volume 9.5 fL (9.4-12.4); Monocytes # 0.6 K/mcL (0.0-1.3); Monocytes % 9.8 %; Neutrophils # 3.5 K/mcL (1.6-8.9); Platelet Count 279 K/mcL (140-400); Red Blood Count 4.04 M/mcL (3.82-4.97); Red Cell Distribution Width 12.9 % (11.5-14.5); Segmented Neutrophils % 53.9 %
[2018-10-09 09:14] LABS: Alanine Aminotransferase 59 Units/L (7-52); Aspartate Amino Transferase 31 Units/L (13-39); BUN/Creatinine Ratio 17 (6-26); Blood Urea Nitrogen 11 mg/dL (6-20); Lactate Dehydrogenase 196 Units/L (140-271); Uric Acid 5.4 mg/dL (2.3-7.6); eGFR For Non-African Americans > 60 (> 60)
[2018-10-09] MEDS: Ibuprofen 600 MG TABLET PO PRN ×2 (09:27→21:19)
[2018-10-09] MEDS ORDERED: Acetaminophen 325 MG TABLET PO PRN (14:59)
[2018-10-09] MEDS ORDERED: MOM Conc 10 ML UD.LIQ PO ONE (20:33)
[2018-10-09] MEDS: cephALEXin 500 MG CAPSULE PO SCH (21:18)
[2018-10-10] MEDS: Magnesium Sulfate 20 gm/500mL 20 GM/500 ML IV.SOLN IVC SCH (02:18)
[2018-10-10 06:18] LABS: Basophils # 0.1 K/mcL (0.0-0.2); Basophils % 0.7 %; Eosinophils # 0.2 K/mcL (0.0-0.6); Eosinophils % 3.4 %; Lymphocytes # 2.2 K/mcL (0.6-4.6); Mean Corpuscular HGB Conc 32.4 g/dL (31.6-35.5); Mean Corpuscular Hemoglobin 29.3 pg (28.0-33.3); Mean Corpuscular Volume 90.2 fL (83.0-100.0); Mean Platelet Volume 9.2 fL (9.4-12.4); Monocytes # 0.6 K/mcL (0.0-1.3); Monocytes % 9.1 %; Neutrophils # 3.6 K/mcL (1.6-8.9); Platelet Count 273 K/mcL (140-400); Segmented Neutrophils % 52.8 %
[2018-10-10 06:38] LABS: Alanine Aminotransferase 51 Units/L (7-52); Aspartate Amino Transferase 29 Units/L (13-39); BUN/Creatinine Ratio 16 (6-26); Blood Urea Nitrogen 10 mg/dL (6-20); Lactate Dehydrogenase 201 Units/L (140-271); Uric Acid 5.3 mg/dL (2.3-7.6); eGFR For Non-African Americans > 60 (> 60)
[2018-10-10] MEDS: cephALEXin 500 MG CAPSULE PO SCH ×2 (07:57→19:38)
--- NOTE | 2018-10-10 14:12 | Event Note ---
Date of Encounter: 10/10/18 Time of Encounter: 14:05 Re-admission to Labor and Delivery, Pre-eclampsia S: 33yo female who is now 7d PP from an uncomplicated . Patient was admitted yesterday 10/09 and started on IV Magnesium with concern for PreE. She had elevated BP and a slight increase in LFTs (60s). The remainder of her labs were normal, as the patient did not require any anti-hypertensive medication(s) IV or PO. The patient was asymptomatic otherwise, but kept on IV mag. Her VSS, and she was HDS, making adequate urine. WE discontinued her IV Mag this morning after completion of 24hrs. She has since had NO elevated BP. She is OK to void spontaneously, attempt to ADAT (advance diet as tolerated). Denies KOEHLER/CP/SOB/difficulty breathing. No shortness of breath, no R upper quadrant pain. O: 120-130s/70-80s Non-tachycardic 100%RA Labs: Normal (see lab) A/P: 33yo female s/p (PP#7) who is admitted with concern for pre- eclampsia 1. PreE - completed IV Magnesium for 24hr - intiail labs with mild transaminitis, will repeat in AM - asymptomatic, normotensive, VSS, HDS - OK to ADAT to regular Dispo: OK to DC patient to home tomorrow (PPD#8) pending patient status. VSS, HDS, normotensive and asymptomatic. Will have repeat labs ordered tomorrow AM. long as there is stability or improvement in labs, will plan to DC Patient to home. Has not required any form (PO/IV) antihypertensives since admission. Terra Berry MD
--- NOTE | 2018-10-10 14:20 | OB/GYN Progress Note ---
Date of Encounter: 10/10/18 Time of Encounter: 13:26 Subjective - Subjective Principal diagnosis: Patient admitted for PreE Interval history: Patient returned to ED with elevated BP, persistently found to be elevated >150/110. Was admitted on 10/09 and started on 24hr of IV Magnesium. Overnight she was normotensive, and did not require and form of IV/PO medication for blood pressure. Her UOP was adequate, Her VSS, denied KOEHLER/CP/SOB/difficulty breathing. The IV Mag was turned off at 0530 this AM after completion of 24hr. Throughout the day she has begun to feel better: improvement of nausea, blurry vision. Remained normotensive with stable VS. Diet was advanced today to regular ads the paitent was ambulating. Plan to have patient DC to home after repeat labs are resulted tomorrow AM. MD JHONY Objective - Latest Vital Signs Latest vital signs: Vital Signs Temp Pulse Resp BP Pulse Ox 10/10/18 11:12 98.0 F 85 16 123/93 10/10/18 08:30 98.3 F 79 16 130/91 10/10/18 05:40 71 14 131/88 10/10/18 04:45 97.6 F 69 14 134/89 100 10/10/18 03:40 69 14 127/83 10/10/18 02:30 70 16 123/85 10/10/18 01:35 72 16 134/81 10/10/18 00:40 66 16 124/88 10/09/18 23:30 97.7 F 75 16 133/96 99 10/09/18 22:30 87 14 119/82 10/09/18 21:32 84 16 127/90 10/09/18 20:30 81 16 129/90 10/09/18 19:30 97.5 F L 84 16 129/96 100 10/09/18 18:15 88 16 120/87 10/09/18 17:18 86 16 122/91 10/09/18 16:22 98.3 F 83 14 113/63 100 10/09/18 15:39 83 16 107/72 10/09/18 14:10 86 16 116/80 Intake and Output 10/09/18 10/10/18 10/10/18 23:59 07:59 15:59 Intake Total 2100 / 2100 500 / 500 1060 / 1060 Output Total 2350 / 2350 2000 / 2000 Balance -250 / -250 -1500 / -1500 1060 / 1060 Intake: IV Fluids 500 / 500 500 / 500 Magnesium Sulfate Premix 20 gm/ 500 / 500 500 / 500 500mL 20 gm In 500 ml @ 2 GM/HR 50 mls/hr IVC .Q10H GABRIELA Rx#: [id number] Oral 1600 / 1600 1060 / 1060 Output: Urine 2350 / 2350 1999 Other: Meal Breakfast Percent of Meal Consumed 50% Weight 107.4 kg Patient Weight 10/10/18 23:59 Weight 107.4 kg - Labs Labs: Laboratory Results - last 24 hr 10/10/18 10/10/18 05:43 05:43 WBC 6.8 RBC 4.10 Hgb 12.0 Hct 37.0 MCV 90.2 MCH 29.3 MCHC 32.4 RDW 13.0 Plt Count 273 MPV 9.2 L Immature Gran % 1.0 Seg Neutrophils % 52.8 Lymphocytes % 33.0 Monocytes % 9.1 Eosinophils % 3.4 Basophils % 0.7 Neutrophils # 3.6 Lymphocytes # 2.2 Monocytes # 0.6 Eosinophils # 0.2 Basophils # 0.1 BUN 10 Creatinine 0.63 Est GFR ( Amer) > 60 Est GFR (Non-Af Amer) > 60 BUN/Creatinine Ratio 16 Uric Acid 5.3 AST 29 ALT 51 Lactate Dehydrogenase 201
[2018-10-10] MEDS: Ibuprofen 600 MG TABLET PO PRN (19:38)
--- NOTE | 2018-10-10 22:23 | Discharge Summary ---
Date of Encounter: 10/11/18 Time of Encounter: 07:00 - Discharge Diagnosis (1) hypertension Priority: Primary Status: Acute Comments: 33yo female who was admitted for pre-eclampsia, admission on 10/09 (PPD#6 from [facility]). The patient was having elevated BP, bilateral upper and lower extremity swelling, and a slight transamninitis. Because of her persistently elevated BP, she was admitted and completed a full 24hr of IV Magnesium. The patient never required IV or PO antihypertensive intervention, as she remaind normotensive throughout her hospital stay. ON PPD#7, we DC'd her IV magnesium and continued to monitor her vital signs. She remained stable, without si/sx of persistent elvated BP or si/sx consistent with BP. Plan was made for patient to be discharged to home on PPD#8 (10/11) and given all precaution(s) should her symptoms persist or worsen. The patient was DC'd to home on 10/11, as all questions and concerns were answered prior to her leaving the unit. She is aware that she will need to f/u with Dr. Berry for her PP care. Baby boy is doing well, as the patient continues to breast feed/pump. MD JHONY - Discharge Medications Prescriptions: New Cephalexin [Keflex] 500 mg PO BID 5 Days capsule No Action Prenatl Vit6/Iron/FA/B12/Ca/D3 [Mteryti Combo Pack] 1 each PO Acetaminophen [Tylenol] 650 mg PO Q6HR PRN tablet PRN Reason: Mild Pain Ibuprofen [Motrin] 600 mg PO Q6HR PRN #30 tablet PRN Reason: Cramping Calcium Carbonate [Tums] 1,000 mg PO Q4H PRN tab.chew PRN Reason: Heartburn Docusate [Colace] 100 mg PO BID #30 capsule Home Medications: Prenatl Vit6/Iron/FA/B12/Ca/D3 [Mteryti Combo Pack] 1 each PO 08/21/18 [History] Acetaminophen [Tylenol] 650 mg PO Q6HR PRN tablet 10/04/18 [Rx] Calcium Carbonate [Tums] 1,000 mg PO Q4H PRN tab.chew 10/04/18 [Rx] Docusate [Colace] 100 mg PO BID #30 capsule 10/04/18 [Rx] Ibuprofen [Motrin] 600 mg PO Q6HR PRN #30 tablet 10/04/18 [Rx] Cephalexin [Keflex] 500 mg PO BID 5 Days capsule 10/09/18 [Rx] Allergies/Adverse Reactions: Allergy/AdvReac Type Severity Reaction Status Date / Time Sulfa (Sulfonamide Allergy Mild Hives Verified 10/09/18 01:22 Antibiotics) Data Procedures and tests throughout hospitalization: Laboratory Tests 10/09/18 10/09/18 10/09/18 01:25 01:25 01:25 WBC 7.7 RBC 3.86 Hgb 11.3 L Hct 34.9 L MCV 90.4 MCH 29.3 MCHC 32.4 RDW 12.8 Plt Count 259 MPV 9.3 L Immature Gran % 1.3 Seg Neutrophils % 52.6 Lymphocytes % 32.1 Monocytes % 10.1 Eosinophils % 3.4 Basophils % 0.5 Neutrophils # 4.1 Lymphocytes # 2.5 Monocytes # 0.8 Eosinophils # 0.3 Basophils # 0.0 Sodium 141 Potassium 3.9 Chloride 107 Carbon Dioxide 23 BUN 13 Creatinine 0.58 L Est GFR ( Amer) > 60 Est GFR (Non-Af Amer) > 60 BUN/Creatinine Ratio 22 Glucose 91 Calculated Osmolality 292 Lactic Acid 0.4 L Uric Acid 5.0 Calcium 8.3 L Total Bilirubin 0.3 AST 32 ALT 60 H Alkaline Phosphatase 110 H Lactate Dehydrogenase Troponin I < 0.03 Serum Total Protein 6.0 L Albumin 3.2 L Globulin 2.8 Albumin/Globulin Ratio 1.1 Urine Color Urine Clarity Urine pH Ur Specific [place] Urine Protein Urine Glucose (UA) Urine Ketones Urine Blood Urine Nitrite Urine Bilirubin Urine Urobilinogen Ur Leukocyte Esterase Urine Microscopic RBC Urine Microscopic WBC Ur Squamous Epith Cells Urine Bacteria Hyaline Casts Ur Culture Indicated? 10/09/18 10/09/18 10/09/18 02:28 07:43 07:43 WBC 6.5 RBC 4.04 Hgb 11.7 Hct 36.7 MCV 90.8 MCH 29.0 MCHC 31.9 RDW 12.9 Plt Count 279 MPV 9.5 Immature Gran % 1.5 Seg Neutrophils % 53.9 Lymphocytes % 30.1 Monocytes % 9.8 Eosinophils % 3.8 Basophils % 0.9 Neutrophils # 3.5 Lymphocytes # 2.0 Monocytes # 0.6 Eosinophils # 0.3 Basophils # 0.1 Sodium Potassium Chloride Carbon Dioxide BUN 11 Creatinine 0.63 Est GFR ( Amer) > 60 Est GFR (Non-Af Amer) > 60 BUN/Creatinine Ratio 17 Glucose Calculated Osmolality Lactic Acid Uric Acid 5.4 Calcium Total Bilirubin AST 31 ALT 59 H Alkaline Phosphatase Lactate Dehydrogenase 196 Troponin I Serum Total Protein Albumin Globulin Albumin/Globulin Ratio Urine Color Yellow Urine Clarity Clear Urine pH 6.5 Ur Specific [place] 1.015 Urine Protein Negative Urine Glucose (UA) Normal Urine Ketones Negative Urine Blood Large H Urine Nitrite Negative Urine Bilirubin Negative Urine Urobilinogen Normal Ur Leukocyte Esterase Moderate H Urine Microscopic RBC 3-5 H Urine Microscopic WBC 15-30 H Ur Squamous Epith Cells Many H Urine Bacteria Moderate H Hyaline Casts None Seen Ur Culture Indicated? NO. A 10/10/18 10/10/18 05:43 05:43 WBC 6.8 RBC 4.10 Hgb 12.0 Hct 37.0 MCV 90.2 MCH 29.3 MCHC 32.4 RDW 13.0 Plt Count 273 MPV 9.2 L Immature Gran % 1.0 Seg Neutrophils % 52.8 Lymphocytes % 33.0 Monocytes % 9.1 Eosinophils % 3.4 Basophils % 0.7 Neutrophils # 3.6 Lymphocytes # 2.2 Monocytes # 0.6 Eosinophils # 0.2 Basophils # 0.1 Sodium Potassium Chloride Carbon Dioxide BUN 10 Creatinine 0.63 Est GFR ( Amer) > 60 Est GFR (Non-Af Amer) > 60 BUN/Creatinine Ratio 16 Glucose Calculated Osmolality Lactic Acid Uric Acid 5.3 Calcium Total Bilirubin AST 29 ALT 51 Alkaline Phosphatase Lactate Dehydrogenase 201 Troponin I Serum Total Protein Albumin Globulin Albumin/Globulin Ratio Urine Color Urine Clarity Urine pH Ur Specific [place] Urine Protein Urine Glucose (UA) Urine Ketones Urine Blood Urine Nitrite Urine Bilirubin Urine Urobilinogen Ur Leukocyte Esterase Urine Microscopic RBC Urine Microscopic WBC Ur Squamous Epith Cells Urine Bacteria Hyaline Casts Ur Culture Indicated? Labs on day of discharge: Labs from last 24 hours 10/10/18 10/10/18 05:43 05:43 WBC 6.8 RBC 4.10 Hgb 12.0 Hct 37.0 MCV 90.2 MCH 29.3 MCHC 32.4 RDW 13.0 Plt Count 273 MPV 9.2 L Immature Gran % 1.0 Seg Neutrophils % 52.8 Lymphocytes % 33.0 Monocytes % 9.1 Eosinophils % 3.4 Basophils % 0.7 Neutrophils # 3.6 Lymphocytes # 2.2 Monocytes # 0.6 Eosinophils # 0.2 Basophils # 0.1 BUN 10 Creatinine 0.63 Est GFR ( Amer) > 60 Est GFR (Non-Af Amer) > 60 BUN/Creatinine Ratio 16 Uric Acid 5.3 AST 29 ALT 51 Lactate Dehydrogenase 201 - Impressions ITS Impressions Chest X-Ray 10/09/18 03:24 IMPRESSION: No acute findings. 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 Time Attestation: Total time spent providing and/or coordinating discharge services: Exam - Constitutional Vitals: Temp Pulse Resp BP Pulse Ox 98.4 F 85 14 125/84 98 10/10/18 19:00 10/10/18 19:00 10/10/18 19:00 10/10/18 19:00 10/10/18 19:00 General appearance IM: A&O X 3 - Respiratory Respiratory exam: Present: CTAB - Cardiovascular Cardiovascular exam IM: Present: RRR - GI/Abdominal Incision: normal, dry, intact - Rectal Rectal exam: deferred - Extremities Exam Extremities exam IM: Present: normal capillary refill - Neurological Exam Neurological exam: CN II-XII intact - VTE Reasons for not Prescribing Prophylaxis: Treatment not Indicated - Low risk for VTE
[2018-10-11 05:48] LABS: Basophils % 0.6 %; Eosinophils # 0.2 K/mcL (0.0-0.6); Eosinophils % 3.6 %; Hematocrit 35.7 % (35.3-44.9); Hemoglobin 11.7 g/dL (11.5-15.4); Immature Granulocytes % 0.9 % (0-4); Lymphocytes # 2.3 K/mcL (0.6-4.6); Lymphocytes % 35.1 %; Mean Corpuscular HGB Conc 32.8 g/dL (31.6-35.5); Mean Corpuscular Hemoglobin 29.7 pg (28.0-33.3); Mean Corpuscular Volume 90.6 fL (83.0-100.0); Mean Platelet Volume 9.2 fL (9.4-12.4); Monocytes # 0.6 K/mcL (0.0-1.3); Neutrophils # 3.3 K/mcL (1.6-8.9); Platelet Count 280 K/mcL (140-400); Red Blood Count 3.94 M/mcL (3.82-4.97); Red Cell Distribution Width 12.9 % (11.5-14.5); Segmented Neutrophils % 50.8 %
[2018-10-11 06:07] LABS: Alanine Aminotransferase 43 Units/L (7-52); Aspartate Amino Transferase 21 Units/L (13-39); Lactate Dehydrogenase 186 Units/L (140-271); eGFR For Non-African Americans > 60 (> 60)
[2018-10-11] MEDS: cephALEXin 500 MG CAPSULE PO SCH (07:30)
[2018-10-11 08:01] VITALS: BP 133/97
--- NOTE | 2018-10-11 08:07 | Electrocardiograph Report ---
[place] [id number] Test Date: 2018-10-09 Pat Name: Trish Serna Department: [id number] Room: [facility] Gender: F [employer] Operator: : [id number] Requested By: Bella Yadav Order Number: [id number] Reading MD: Fredo Mariano Measurements Intervals [place] Rate: 62 P: 75 AR: 164 QRS: 36 QRSD: 98 T: 61 QT: 387 QTc: 393 Interpretive Statements Sinus rhythm Electronically Signed On 10-11-2018 8:05:25 EDT by Fredo Mariano
== END 2018-10-11 08:06 | disposition home or self-care (01) | DRG 561 ==
LOC: EMEROOARM 00:55 → 1NENUOBS 00:55
PROVIDERS: ADMIT Student in an Organized Health Care Education/Training Program; ATTEND Student in an Organized Health Care Education/Training Program